=== PATIENT | male | born 1955 | race Caucasian/White ===

== ENCOUNTER 2017-09-29 03:20 | Inpatient (IN) | payer OTHER ==
[~2017-09-29] VITALS: Ht 185.4 cm; Wt 117.9 kg
[~2017-09-29 03:20] MED LIST: ATORVASTATIN 20 MG TAB ONE; METOPROLOL TARTRATE 25 MG TAB ONE
[2017-09-29] MEDS ORDERED: HEPARIN DRIP/D5W 100UNITS/ML 250 ML IV SCH (03:21)
[2017-09-29] MEDS ORDERED: ONDANSETRON HCL 4 MG/2 ML VIAL ONE (03:22)
[2017-09-29] MEDS ORDERED: MORPHINE SULF INJ 2 MG/ML SYRINGE 1ML ONE (03:22)
[2017-09-29] MEDS ORDERED: HEPARIN SODIUM (PORCINE) 5000 UNITS/ML 1ML VIAL IV ONE (03:30)
[2017-09-29] MEDS ORDERED: METOPROLOL TARTRATE 25 MG TAB PO ONE (03:30)
[2017-09-29] MEDS ORDERED: ATORVASTATIN 20 MG TAB PO ONE (03:30)
[2017-09-29 03:45] LABS: Eosinophils # (auto) 0.1 uL; Lymphocytes # (auto) 1.3 uL; Monocytes # (auto) 0.9 uL
[2017-09-29] MEDS ORDERED: ONDANSETRON HCL 4 MG/2 ML VIAL IV ONE (03:45)
[2017-09-29] MEDS ORDERED: MORPHINE SULF INJ 2 MG/ML SYRINGE 1ML IV ONE (03:45)
[2017-09-29 03:47] LABS: Basophils # (auto) 0 uL; Basophils % (auto) 0.3 % (0.0-2.0); Eosinophils % (auto) 1.1 % (0.0-7.0); Hemoglobin 12.4 g/dL (13.5-17.5); Lymphocytes % (auto) 11.2 % (10.0-50.0); Mean Corpuscular Hemoglobin 26.8 pg (28.0-32.0); Mean Corpuscular Hgb Conc. 31.8 g/dL (32.0-36.0); Mean Corpuscular Volume 84.5 fL (80.0-100.0); Mean Platelet Volume 6.7 fL (6.9-10.8); Monocytes % (auto) 7.3 % (0.0-12.0); Neutrophils # (auto) 9.6 uL; Neutrophils % (auto) 80.1 % (37.0-80.0); Platelet Count (auto) 357 10^3/uL (140-450)
[2017-09-29 03:59] LABS: INR 0.94 (0.9-1.15); Partial Thromboplastin Time 25.5 sec (22.64-33.71); Prothrombin Time 10.2 sec (9.37-12.3)
[2017-09-29] MEDS ORDERED: HEPARIN SODIUM (PORCINE) 5000 UNITS/ML 1ML VIAL ONE (04:02)
[2017-09-29 04:05] LABS: Red Cell Distribution Width 21.2 % (11.8-14.3)
[2017-09-29 04:13] LABS: Albumin 3.2 g/dL (3.4-5.0); Bilirubin, Total 0.3 mg/dL (0.2-1.0); Calcium 8.6 mg/dL (8.5-10.1); Magnesium 1.9 mg/dL (1.6-2.6); Potassium 3.7 mmol/L (3.5-5.1)
[2017-09-29] MEDS ORDERED: MIDAZOLAM HCL 1MG/1ML-2 ML VIAL ONE (04:13)
[2017-09-29] MEDS ORDERED: ANGIOMAX 250 MG VIAL IV ONE ×2 (04:13→05:29)
[2017-09-29] MEDS ORDERED: fentaNYL CITRATE 100 MCG/2 ML VL ONE (04:13)
[2017-09-29] MEDS ORDERED: ATROPINE SULF 0.5 MG/5ML SYR ONE (04:14)
[2017-09-29] MEDS ORDERED: EPINEPHrine HCL 1 MG/10 ML SYRG ONE (04:14)
[2017-09-29] MEDS ORDERED: EPTIFIBATIDE INJ (2MG/ML) 10ML VIAL IV ONE (04:14)
[2017-09-29] MEDS ORDERED: SODIUM CHL 0.9% 50 ML ONE ×2 (04:14→05:29)
[2017-09-29] MEDS ORDERED: LIDOCAINE 2%HCL (LOCAL ANESTH.) INJ 20ML MDV ONE ×2 (04:15→04:34)
[2017-09-29] MEDS ORDERED: IODIXANOL 320MG/ML 100ML BTL IV ONE (04:15)
[2017-09-29 04:34] LABS: B-Type Natriuretic Peptide 165.15 pg/mL (0-100)
[2017-09-29 04:42] LABS: Temperature: 23.5 C (20.0-25.0)
[2017-09-29 05:04] LABS: Anisocytosis Slight; Ovalocytes FEW; Platelet Estimate Adequate
[2017-09-29] MEDS ORDERED: hydrALAZINE HCL 20 MG/ML VL ONE (05:29)
[2017-09-29] MEDS ORDERED: NITROGLYCERIN 0.4MG/DOSE SPRAY 4.9GM ONE (05:51)
[2017-09-29] MEDS ORDERED: HYDROmorphone HCL 2 MG/ML VL IV PRN (07:00)
[2017-09-29] MEDS: ACCU-CHEK COMFORT CURVE STRIP VI SCH ×3 (07:00→17:15)
[2017-09-29] MEDS ORDERED: D5W/SOD CHL 0.45% 1,000 ML IV SCH (07:00)
[2017-09-29] MEDS ORDERED: HYDROcodone-ACET 10/325MG TAB PO PRN (07:00)
[2017-09-29] MEDS: InsuLIN REG 1unit/0.01ml Soln (100units/ml) SC SCH ×3 (07:00→17:16)
[2017-09-29] MEDS ORDERED: DEXTROSE (50%) 50ML SYRG IV PRN (07:00)
[2017-09-29] MEDS ORDERED: LORazepam 0.5 MG TAB PO PRN (07:00)
[2017-09-29] MEDS ORDERED: NITROGLYCERIN 0.4 MG SL TAB SL PRN (07:00)
[2017-09-29] MEDS ORDERED: LOSA50TA6 PO (07:27)
[2017-09-29] MEDS ORDERED: IBU100LQ PO (07:27)
[2017-09-29] MEDS ORDERED: FERR325T PO (07:27)
[2017-09-29] MEDS ORDERED: AMLO5TAB2 PO (07:27)
[2017-09-29] MEDS ORDERED: ATEN100T PO (07:27)
[2017-09-29] MEDS ORDERED: GLIP-116 PO (07:27)
[2017-09-29] MEDS ORDERED: ATOR80TA PO (07:27)
[2017-09-29] MEDS ORDERED: METF-371 PO (07:27)
[2017-09-29] MEDS ORDERED: PIOG15TA46 PO (07:27)
[2017-09-29] MEDS ORDERED: TRAZ150T79 PO (07:27)
[2017-09-29] MEDS ORDERED: FURO40TA PO (07:27)
[2017-09-29] MEDS ORDERED: TAM04C PO (07:27)
[2017-09-29] MEDS ORDERED: CLOP75TA28 PO (07:27)
[2017-09-29] MEDS ORDERED: POTA10TA75 PO (07:27)
[2017-09-29] MEDS ORDERED: IBUPROFEN 800 MG TAB PO PRN (07:45)
[2017-09-29 08:01] LABS: Basophils # (auto) 0.1 uL; Eosinophils # (auto) 0.1 uL; Hemoglobin 11.3 g/dL (13.5-17.5); White Blood Cell 11.5 10^3/uL (4.4-10.8)
[2017-09-29 08:03] LABS: Basophils % (auto) 0.8 % (0.0-2.0); Eosinophils % (auto) 0.6 % (0.0-7.0); Hematocrit 35.9 % (41.0-53.0); Lymphocytes # (auto) 1.4 uL; Lymphocytes % (auto) 11.9 % (10.0-50.0); Mean Corpuscular Hemoglobin 26.8 pg (28.0-32.0); Mean Corpuscular Hgb Conc. 31.5 g/dL (32.0-36.0); Mean Corpuscular Volume 85.1 fL (80.0-100.0); Mean Platelet Volume 7.1 fL (6.9-10.8); Monocytes # (auto) 0.7 uL; Monocytes % (auto) 6.1 % (0.0-12.0); Neutrophils # (auto) 9.2 uL; Neutrophils % (auto) 80.6 % (37.0-80.0); Platelet Count (auto) 304 10^3/uL (140-450)
[2017-09-29 08:10] LABS: Red Cell Distribution Width 21.3 % (11.8-14.3)
[2017-09-29] MEDS ORDERED: SOD CHL 0.45% 1,000 ML IV SCH (08:15)
[2017-09-29 09:15] LABS: Anisocytosis Slight; Hypochromia Slight; Ovalocytes FEW; Platelet Estimate Adequate
[2017-09-29 09:16] LABS: Platelet Clumps FEW
[2017-09-29] MEDS: MORPHINE SULF INJ 2 MG/ML SYRINGE 1ML IV PRN ×2 (09:56→14:01)
[2017-09-29] MEDS ORDERED: POTASSIUM CHL 10 Meq TABLET PO SCH (10:00)
[2017-09-29] MEDS ORDERED: TAMSULOSIN HYDROCHLORIDE 0.4 MG CAP PO SCH (10:00)
[2017-09-29] MEDS ORDERED: PATIENTS OWN MEDICATION (Ferrous Sulfate 325 MG) PO SCH ×2 (10:00)
[2017-09-29] MEDS ORDERED: NITROGLYCERIN 0.2MG/HR TOPICAL PATCH TD SCH (10:00)
[2017-09-29] MEDS ORDERED: ASPirin 81 mg TAB PO SCH (10:00)
[2017-09-29] MEDS ORDERED: FERROUS SULFATE 325 MG TAB PO SCH (10:00)
[2017-09-29] MEDS ORDERED: LOSARTAN POTASSIUM 50 MG TAB PO SCH (10:00)
[2017-09-29] MEDS ORDERED: PATIENTS OWN MEDICATION (Atenolol 100 MG) PO SCH (10:00)
[2017-09-29] MEDS ORDERED: CLOPIDOGREL BISULFATE 75 MG TAB PO SCH (10:00)
[2017-09-29] MEDS ORDERED: FUROSEMIDE 40 MG TAB PO SCH (10:00)
[2017-09-29] MEDS ORDERED: PIOGLITAZONE HYDROCHLORIDE 30 MG TAB PO SCH (10:00)
[2017-09-29] MEDS ORDERED: PIOGLITAZONE HYDROCHLORIDE 15 MG PO SCH (10:00)
[2017-09-29] MEDS ORDERED: PATIENTS OWN MEDICATION (Atorvastatin Calcium (Lipitor) 1 TAB) PO SCH ×2 (10:00)
[2017-09-29] MEDS ORDERED: METOPROLOL SUCCINATE XL 50 MG TAB PO SCH (10:00)
[2017-09-29] MEDS ORDERED: PATIENTS OWN MEDICATION (Glipizide 10 MG) PO SCH ×2 (10:00)
[2017-09-29] MEDS: amLODIPine BESYLATE 5 MG TAB PO SCH ×2 (10:45→11:35)
[2017-09-29 13:00] VITALS: BP 128/80
[2017-09-29] MEDS ORDERED: IBUPROFEN 100MG/5ML ORAL SUSP 100 MG/5 ML UD PO SCH (14:00)
[2017-09-29] MEDS ORDERED: MORPHINE SULF INJ 2 MG/ML SYRINGE 1ML IV PRN (16:45)
[2017-09-29 17:00] VITALS: BP 104/64
[2017-09-29] MEDS ORDERED: Boost Glucose Control 8 Ounces PO SCH (18:00)
[2017-09-29] MEDS ORDERED: glipiZIDE 5 MG TAB PO SCH (18:00)
[2017-09-29] MEDS ORDERED: traZODone HCL 50 MG TAB PO SCH (22:00)
[2017-09-29] MEDS ORDERED: TRAZODONE HCL 150 MG PO SCH (22:00)
[2017-09-29] MEDS ORDERED: ATORVASTATIN 20 MG TAB PO SCH (22:00)
[2017-09-29] MEDS ORDERED: InsuLIN REG 1unit/0.01ml Soln (100units/ml) SC SCH (22:00)
== END 2017-09-29 20:34 | DRG 281 ==
LOC: EDUNIT# 03:20 → EDBD 03:20 → ER 03:22 → CATH 03:46 → TELE-WESTW 03:47
PROVIDERS: ADMIT Specialist; ATTEND Specialist
PROC: 4A023N7 Measurement of Cardiac Sampling and Pressure, Left Heart, Percutaneous Approach (ICD-10-PCS; principal; 2017-09-29)
PROC: B2111ZZ Fluoroscopy of Multiple Coronary Arteries using Low Osmolar Contrast (ICD-10-PCS; 2017-09-29)
PROC: B2121ZZ Fluoroscopy of Single Coronary Artery Bypass Graft using Low Osmolar Contrast (ICD-10-PCS; 2017-09-29)
PROC: B2181ZZ Fluoroscopy of Left Internal Mammary Bypass Graft using Low Osmolar Contrast (ICD-10-PCS; 2017-09-29)
PROC: B2151ZZ Fluoroscopy of Left Heart using Low Osmolar Contrast (ICD-10-PCS; 2017-09-29)
DX: I21.3 ST elevation (STEMI) myocardial infarction of unspecified site (principal); E44.0 Moderate protein-calorie malnutrition; E11.9 Type 2 diabetes mellitus without complications; E78.5 Hyperlipidemia, unspecified; D63.8 Anemia in other chronic diseases classified elsewhere; I10 Essential (primary) hypertension; J98.11 Atelectasis; I70.90 Unspecified atherosclerosis; I25.10 Atherosclerotic heart disease of native coronary artery without angina pectoris; I51.7 Cardiomegaly; I25.2 Old myocardial infarction; Z85.038 Personal history of other malignant neoplasm of large intestine; Z95.5 Presence of coronary angioplasty implant and graft; Z68.34 Body mass index [BMI] 34.0-34.9, adult
CPT/HCPCS: 36415; 71010; 80053; 82962; 83735; 83880; 84484; 85025; 85610; 85730; 86850; 86900; 86901; 93459; 96374; 96375; 99152; 99153; C1887; J0461; J1815; J2250; J2405; Q9967

== ENCOUNTER 2017-10-07 17:18 | Inpatient (IN) | payer OTHER ==
[~2017-10-07] VITALS: Ht 172.7 cm; Wt 99.8 kg
[~2017-10-07 17:18] MED LIST changes: +AMLO5TAB2 PO; +ATEN100T PO; +ATOR80TA PO; -ATORVASTATIN 20 MG TAB ONE; +CLOP75TA28 PO; +FERR325T PO; +FURO40TA PO; +GLIP-116 PO; +IBU100LQ PO; +LOSA50TA6 PO; +METF-371 PO; -METOPROLOL TARTRATE 25 MG TAB ONE; +PIOG15TA46 PO; +POTA10TA75 PO; +TAM04C PO; +TRAZ150T79 PO
[2017-10-07] MEDS ORDERED: MORPHINE SULF INJ 2 MG/ML SYRINGE 1ML IV ONE (17:45)
[2017-10-07] MEDS ORDERED: ONDANSETRON HCL 4 MG/2 ML VIAL IV ONE (17:45)
[2017-10-07 19:06] LABS: Basophils # (auto) 0 uL; Basophils % (auto) 0.4 % (0.0-2.0); Eosinophils # (auto) 0.2 uL; Eosinophils % (auto) 2.5 % (0.0-7.0); Hemoglobin 10.1 g/dL (13.5-17.5); Lymphocytes % (auto) 14.6 % (10.0-50.0); Mean Corpuscular Hgb Conc. 32.7 g/dL (32.0-36.0); Mean Corpuscular Volume 85.6 fL (80.0-100.0); Mean Platelet Volume 6.5 fL (6.9-10.8); Monocytes # (auto) 0.5 uL; Neutrophils # (auto) 5.1 uL; Neutrophils % (auto) 75.5 % (37.0-80.0); Nucleated Red Blood Cells % 0.2 %; Platelet Count (auto) 364 10^3/uL (140-450); Red Cell Distribution Width 19.9 % (11.8-14.3); White Blood Cell 6.8 10^3/uL (4.4-10.8)
[2017-10-07] MEDS ORDERED: LIDOCAINE HCL 100 MG/5ML (2%) SYRG INJ IV ONE (19:15)
[2017-10-07] MEDS ORDERED: AMIODARONE HCL (50 MG/ ML) 3 ML VIAL IV ONE (19:17)
[2017-10-07] MEDS ORDERED: AMIODARONE HCL 900 MG IV ONE (19:17)
[2017-10-07 19:29] LABS: INR 0.98 (0.9-1.15); Partial Thromboplastin Time 25.2 sec (22.64-33.71); Prothrombin Time 10.7 sec (9.37-12.3)
[2017-10-07 19:43] LABS: Albumin 2.8 g/dL (3.4-5.0); BUN/Creatinine Ratio 19.3; Bilirubin, Total 0.8 mg/dL (0.2-1.0); Calcium 8.5 mg/dL (8.5-10.1); Magnesium 1.7 mg/dL (1.6-2.6); Potassium 3.8 mmol/L (3.5-5.1); Total Protein 6.4 g/dL (6.4-8.2)
[2017-10-07] MEDS ORDERED: AMIODARONE HCL 150 MG in D5W 5% 100 ML IV ONE (20:15)
[2017-10-07] MEDS ORDERED: LIDOCAINE 50MG/5ML INJ 5ML SYRINGE IV ONE ×2 (20:15)
[2017-10-07] MEDS ORDERED: AMIODARONE HCL 900 MG in DEXTROSE 500 ML IV SCH (20:17)
[2017-10-07 21:47] LABS: Platelet Estimate Adequate
[2017-10-07 21:48] LABS: Anisocytosis Slight; Ovalocytes FEW
[2017-10-08] MEDS ORDERED: AMIODARONE HCL 900 MG in DEXTROSE 500 ML IV SCH (02:17)
[2017-10-08] MEDS ORDERED: ONDANSETRON HCL 4 MG/2 ML VIAL IV PRN ×2 (04:00→06:45)
[2017-10-08] MEDS ORDERED: NITROGLYCERIN 0.4 MG SL TAB SL PRN (04:00)
[2017-10-08] MEDS ORDERED: ACETAMINOPHEN 500 MG TAB PO PRN ×2 (04:00→06:45)
[2017-10-08] MEDS ORDERED: MORPHINE SULF INJ 2 MG/ML SYRINGE 1ML IV PRN ×3 (04:00→06:45)
[2017-10-08] MEDS ORDERED: HYDROcodone-ACET 5/325MG TAB PO PRN ×2 (04:00→06:45)
[2017-10-08] MEDS ORDERED: ASPI-498 PO (05:21)
[2017-10-08] MEDS ORDERED: LORA-352 PO (05:21)
[2017-10-08] MEDS ORDERED: CARV6.2551 PO (05:21)
[2017-10-08] MEDS ORDERED: NITR0.4S29 SL (05:21)
[2017-10-08] MEDS ORDERED: ISO60SRT PO (05:21)
[2017-10-08] MEDS ORDERED: NIC21P TOP (05:21)
[2017-10-08 07:29] LABS: Basophils # (auto) 0 uL; Basophils % (auto) 0.4 % (0.0-2.0); Eosinophils # (auto) 0.2 uL; Eosinophils % (auto) 2.6 % (0.0-7.0); Hematocrit 32.1 % (41.0-53.0); Hemoglobin 10.2 g/dL (13.5-17.5); Lymphocytes % (auto) 13.5 % (10.0-50.0); Mean Corpuscular Hemoglobin 27.1 pg (28.0-32.0); Mean Corpuscular Hgb Conc. 31.8 g/dL (32.0-36.0); Mean Corpuscular Volume 85.1 fL (80.0-100.0); Mean Platelet Volume 6.4 fL (6.9-10.8); Monocytes # (auto) 0.5 uL; Monocytes % (auto) 6.7 % (0.0-12.0); Neutrophils # (auto) 5.8 uL; Neutrophils % (auto) 76.8 % (37.0-80.0); Nucleated Red Blood Cells % 0.1 %; Platelet Count (auto) 373 10^3/uL (140-450); White Blood Cell 7.5 10^3/uL (4.4-10.8)
[2017-10-08 07:35] LABS: Red Cell Distribution Width 20.1 % (11.8-14.3)
[2017-10-08 07:46] LABS: Anisocytosis Slight; Platelet Estimate Adequate
[2017-10-08 07:47] LABS: Ovalocytes FEW
[2017-10-08 08:06] LABS: BUN/Creatinine Ratio 18.6; Calcium 8.4 mg/dL (8.5-10.1); Potassium 3.9 mmol/L (3.5-5.1)
[2017-10-08] MEDS ORDERED: ISOSORBIDE MONONITRATE 60 MG TAB PO SCH (10:00)
[2017-10-08] MEDS ORDERED: FUROSEMIDE 20 MG TAB PO SCH (10:00)
[2017-10-08] MEDS ORDERED: LORATADINE 10 MG TAB PO SCH (10:00)
[2017-10-08] MEDS ORDERED: POTASSIUM CHL 10 Meq TABLET PO SCH (10:00)
[2017-10-08] MEDS ORDERED: ASPirin-EC 81 mg tab PO SCH (10:00)
[2017-10-08] MEDS: CARVEDILOL 3.125 MG TAB PO SCH ×2 (10:43→22:48)
[2017-10-08] MEDS ORDERED: ENOXAPARIN SOD 100 MG/1 ML SYRINGE SC ONE (11:45)
[2017-10-08] MEDS ORDERED: DEXTROSE (50%) 50ML SYRG IV PRN (14:15)
[2017-10-08] MEDS ORDERED: InsuLIN REG 1unit/0.01ml Soln (100units/ml) SC SCH ×2 (17:00→22:00)
[2017-10-08] MEDS ORDERED: TAMSULOSIN HYDROCHLORIDE 0.4 MG CAP PO SCH (18:00)
[2017-10-08] MEDS: ACCU-CHEK COMFORT CURVE STRIP VI SCH ×2 (18:05→22:35)
[2017-10-08] MEDS ORDERED: DEXTROSE IV SCH (21:45)
[2017-10-08] MEDS ORDERED: AMIODARONE HCL IV SCH (21:45)
[2017-10-08] MEDS ORDERED: INSULIN DETEMIR(LEVEMIR) 1unit/0.01ml Soln (100units/ml) SC SCH (22:00)
[2017-10-08] MEDS ORDERED: ATORVASTATIN 20 MG TAB PO SCH (22:00)
[2017-10-08] MEDS ORDERED: traZODone HCL 50 MG TAB PO SCH (22:00)
[2017-10-08] MEDS ORDERED: ENOXAPARIN SOD 100 MG/1 ML SYRINGE SC SCH (22:00)
[2017-10-08 22:45] VITALS: BP 106/65
== END 2017-10-08 23:00 | disposition short-term general hospital (02) | DRG 281 ==
LOC: EDBD 17:18 → ER 17:36 → TELE 17:37
PROVIDERS: ADMIT Nurse Practitioner Family; ATTEND Nurse Practitioner Family
DX: I21.4 Non-ST elevation (NSTEMI) myocardial infarction (principal); I47.2 Ventricular tachycardia; E44.0 Moderate protein-calorie malnutrition; I25.82 Chronic total occlusion of coronary artery; E11.65 Type 2 diabetes mellitus with hyperglycemia; I50.9 Heart failure, unspecified; I11.0 Hypertensive heart disease with heart failure; D64.9 Anemia, unspecified; E66.9 Obesity, unspecified; E78.5 Hyperlipidemia, unspecified; F17.210 Nicotine dependence, cigarettes, uncomplicated; I25.10 Atherosclerotic heart disease of native coronary artery without angina pectoris; J44.9 Chronic obstructive pulmonary disease, unspecified; I25.2 Old myocardial infarction; Z79.4 Long term (current) use of insulin; Z85.038 Personal history of other malignant neoplasm of large intestine; Z95.1 Presence of aortocoronary bypass graft; Z95.5 Presence of coronary angioplasty implant and graft; Z68.33 Body mass index [BMI] 33.0-33.9, adult
CPT/HCPCS: 36415; 71010; 80048; 80053; 82962; 83036; 83735; 84484; 85025; 85610; 85730; 93005; 96365; 96372; 99291; J1815; J7060